=== PATIENT | female | born 1985 | race Caucasian/White ===

== ENCOUNTER 2016-10-16 15:03 | Emergency (ER) | payer OTHER ==
--- NOTE | 2016-10-16 15:08 | PDOC ---
History of Present Illness <MitchJerry - Last Filed: 10/16/16 15:37> - History of Present Illness Initial Comments: 10/16/16 15:17 Patient is a 31 year old female, with significant medical hx of anxiety and depression, who is presenting to the ED today for left ankle injury since yesterday. Yesterday the patient twisted her ankle and it rolled inward; she states that she was able to tolerate walking on it for the first few hours. The patient reports her ankle and foot became swollen and with time she has been unable to bear weight due to pain. She tried icing the ankle and taking motrin for pain which did not help. Today her swelling went down and now is only localized to her foot but she is still unable to bear weight. The patient states her pain is moderate in severity while at rest. <Avis Guzman - Last Filed: 10/16/16 15:52> - General Chief Complaint: Injury Stated Complaint: LEFT ANKLE INJURY Time Seen by Provider: 10/16/16 15:06 Past History - Past Medical History Psychiatric Problems: Yes (DEPRESSION, ANXIETY) Suicide Attempt (Hx): No - Psycho/Social/Smoking Cessation Hx Anxiety: No Suicidal Ideation: No Smoking History: Current every day smoker Have you smoked in the past 12 months: Yes Number of Cigarettes Smoked Daily: 7 'Breaking Loose' booklet given: 07/10/14 Hx Alcohol Use: Yes (sober for several months) Drug/Substance Use Hx: No Substance Use Type: None <MitchJerry - Last Filed: 10/16/16 15:37> <Avis Guzman - Last Filed: 10/16/16 15:52> - Past Medical History Allergies/Adverse Reactions: Allergies Allergy/AdvReac Type Severity Reaction Status Date / Time No Known Allergies Allergy Verified 10/16/16 15:04 Home Medications: Ambulatory Orders Naproxen [Naprosyn] 500 mg PO BID PRN #20 tablet 10/16/16 Spironolactone 100 mg PO 10/16/16 Review of Systems - Review of Systems Comments:: 10/16/16 15:17 CONSTITUTIONAL: Absent: fever, chills, diaphoresis, generalized weakness, malaise, loss of appetite HEENT: Absent: rhinorrhea, nasal congestion, throat pain, throat swelling, difficulty swallowing, mouth swelling, ear pain, eye pain, visual changes CARDIOVASCULAR: Absent: chest pain, syncope, palpitations, irregular heart rate, lightheadedness , peripheral edema RESPIRATORY: Absent: cough, shortness of breath, dyspnea with exertion, orthopnea, wheezing, stridor, hemoptysis GASTROINTESTINAL: Absent: abdominal pain, abdominal distension, nausea, vomiting, diarrhea, constipation, melena, hematochezia GENITOURINARY: Absent: dysuria, frequency, urgency, hesitancy, hematuria, flank pain, genital pain MUSCULOSKELETAL: Present: Left ankle pain and swelling Absent: myalgia, arthralgia SKIN: Absent: rash, itching, pallor HEMATOLOGIC/IMMUNOLOGIC: Absent: easy bleeding, easy bruising, lymphadenopathy, frequent infections ENDOCRINE: Absent: unexplained weight gain, unexplained weight loss, heat intolerance, cold intolerance NEUROLOGIC: Absent: headache, focal weakness or paresthesia, dizziness, unsteady gait, seizure, mental status changes, bladder or bowel incontinence. PSYCHIATRIC: Absent: anxiety, depression, suicidal or homicidal ideation, hallucinations <Avis Guzman - Last Filed: 10/16/16 15:52> *Physical Exam - Vital Signs Last Vital Signs Temp Pulse Resp BP Pulse Ox 98.1 F 84 18 107/70 99 10/16/16 15:08 10/16/16 15:08 10/16/16 15:08 10/16/16 15:08 10/16/16 15:08 - Physical Exam Comments: 10/16/16 15:18 GENERAL: Well-appearing, well-nourished. No apparent distress. HEENT: Normocephalic, atraumatic. PERRL, EOM intact. CARDIOVASCULAR: Normal S1, S2. Regular rate and rhythm. PULMONARY: Clear to auscultation bilaterally. ABDOMEN: Soft, non-distended, non-tender. EXTREMITIES: No bony tenderness over the left lateral malleolus or bones of the midfoot. There is soft tissue swelling and tenderness over the distal and proximal talofibular ligament. SKIN: Warm, dry. No rash NEUROLOGICAL: No focal neurological deficits. <Avis Guzman - Last Filed: 10/16/16 15:52> ED Treatment Course - RADIOLOGY Radiograph Interpretation: 10/16/16 15:50 Left Ankle/Foot X-Ray Impression: No acute pathology. Minimal swelling. Calcification or degenerative change by base of second metatarsal as described. Bunion formation first MTP joint. Reported By: Jerry Solomon MD <Avis Guzman - Last Filed: 10/16/16 15:52> Medical Decision Making - Medical Decision Making 10/16/16 15:06 The patient is well-appearing and in no acute distress She arrived by car [place] foot and ankle rules are negative other than the fact that she cannot ambulate secondary to pain There is no bony tenderness on physical examination Will obtain plain x-rays 10/16/16 15:37 X-ray emergency Department interpretation: No acute Clinical impression: Left talofibular ligament sprain I discussed the physical exam findings, ancillary test results and final diagnoses with the patient. I answered all of the patient's questions. The patient was satisfied with the care received and felt comfortable with the discharge plan and treatment plan. The patient will call their primary care physician within 24 hours to arrange follow-up and will return to the Emergency Department with any new, persistent or worsening symptoms. <Jerry Meyer - Last Filed: 10/16/16 15:37> *DC/Admit/Observation/Transfer <Jerry Meyer - Last Filed: 10/16/16 15:37> - Attestations Scribe Attestion: 10/16/16 15:23 Documentation prepared by Avis Guzman, acting as director biomedical engineering for Jerry Meyer MD. <Avis Guzman - Last Filed: 10/16/16 15:52> Diagnosis at time of Disposition: Ankle sprain - Discharge Dispostion Disposition: HOME Condition at time of disposition: Good - Prescriptions Prescriptions: Naproxen [Naprosyn] 500 mg PO BID PRN #20 tablet PRN Reason: Pain - Referrals Referrals: Ashish Caro MD [Staff Physician] - 1 week - Patient Instructions Printed Discharge Instructions: DI for Ankle Sprain Additional Instructions: Return to the emergency department immediately with ANY new, persistent or worsening symptoms. You MUST call and follow up with your doctor tomorrow. Please make sure your doctor reviews the results of your emergency department evaluation. - Post Discharge Activity Work/School Note: Back to Work
[2016-10-16 15:18] VITALS: BP 107/70; PULSE 84; TEMP 98.1; BMI 22.8
[2016-10-16] MEDS ORDERED: NAPROXEN 500 MG TABLET (FP) PO ONE (15:42)
[2016-10-16] MEDS ORDERED: IBUPROFEN 600 MG TABLET (FP) PO ONE (15:45)
[2016-10-16] MEDS ORDERED: NAPROXEN 500 MG TABLET (FP) ONE (15:46)
== END 2016-10-16 15:59 | disposition home or self-care (01) ==
LOC: FER 15:03
DX: S93.402A Sprain of unspecified ligament of left ankle, initial encounter (principal); X58.XXXA Exposure to other specified factors, initial encounter; Y93.01 Activity, walking, marching and hiking; Y92.9 Unspecified place or not applicable; F41.8 Other specified anxiety disorders; F17.210 Nicotine dependence, cigarettes, uncomplicated
CPT/HCPCS: 73610-TC-LT; 73630-TC-LT; 99282-25